=== PATIENT | male | born 1985 | race Caucasian/White ===

== ENCOUNTER 2020-04-17 07:39 | Outpatient (CLI) | payer SELFPAY ==
[2020-04-19 19:50] LABS: Patient Race White; SARS-CoV-2 RNA Undetected (Undetected); SARS-CoV-2 Specimen Source Nasal
== END 2020-04-17 07:59 ==
PROVIDERS: PCP Family Medicine; Visit Provider Family Medicine
DX: Z20.828 Contact with and (suspected) exposure to other viral communicable diseases (principal)
CPT/HCPCS: U0003

== ENCOUNTER 2024-01-26 19:00 | Outpatient (CLI) | payer OTHER, SELFPAY ==
[2024-01-26 09:18] LABS: Calculated LDL 103 mg/dL (<100); Cholesterol 167 mg/dL (<200); HDL Cholesterol 57 mg/dL (40-60); Triglyceride 36 mg/dL (<150)
== END 2024-01-26 19:01 | disposition home or self-care (01) ==
LOC: LBO 19:01
PROVIDERS: PCP Nurse Practitioner Family; Visit Provider Nurse Practitioner Family
DX: Z13.1 Encounter for screening for diabetes mellitus (principal); Z13.220 Encounter for screening for lipoid disorders
CPT/HCPCS: 36415; 80061; 83036

== ENCOUNTER 2024-03-22 22:48 | Emergency (ER) | payer OTHER, SELFPAY ==
[2024-03-22] VITALS (7 sets, daily range): BP systolic 145–161; BP diastolic 85–102; PULSE 101–114; RESP 10–26; TEMP 36.6; O2SAT 96–98
--- NOTE | 2024-03-22 23:00 | RT.EKG_ITS ---
APPROVED REPORT Exam: Resting ECG Reason for Exam: overdose Patient Location: E HR:108 bpm ECG Measurements Heart Rate 108 AXIS DE 126 P 73 QRSd 82 QRS 77 QT 347 T 52 QTc 465 Conclusion Sinus tachycardia...rate> [address] segment or T wave abnormalities to suggest occlusive [place]
--- NOTE | 2024-03-22 23:04 | W.ED.GENAD ---
Discharge Plan Disposition Patient Disposition: Home Condition: Good Discharge Details Clinical Impression: MDMA abuse Primary Care Provider: Andi Carpio ED Provider: Juanita Barber Home Meds and New Rx's Prescriptions: No Action No Known Home Meds Discharge Instructions Instructions: Polysubstance Use Disorder (DC) Additional Instructions: Call your primary care doctor today to schedule an appointment for within the next 72 hours to followup on your visit here. Return to the emergency department for new or worsening symptoms including fever, decreased urine output, chest pain, difficutly breathing, or if you have any other concerns. Stand Alone Forms: Work Release Referrals: Andi Carpio, [employer]PH[employer] [Primary Care Provider] - [facility] General Mode of arrival: ambulatory. Date/Time Provider Initiated Documentation: 03/22/24 22:51. Limitations to Documentation: no limitations. Information obtained by: patient and family. HPI Narrative: 38yo M with hx polysubstance abuse presenting for evaluation after MDMA ingestion. At around 1300 today took about 2g of MDMA. Since then has felt anxious, had difficulty sleeping. Feels left arm and left foot swelling which he says he typically feels when he takes MDMA. Tried some THC concentrate try to help sleep, this was infective. Came in because when he laid down to sleep felt like he was 'drifting off to ' and not falling asleep. Otherwise in his usual state of health with no fevers, chills, rash, nausea, vomtiing, abdominal pain, numbness, tingling, weakness, vision changes, vertigo, shortness of breath, chest pain, or other concerns. Related Data Home Medications ?Medication ?Instructions ?Recorded ?Confirmed Unknown [No Known Home Meds] 10/27/14 03/22/24 Allergies Allergy/AdvReac Type Severity Reaction Status Date / Time amoxicillin AdvReac Intermediate Hives Verified 03/22/24 23:00 cephalexin monohydrate (From AdvReac Intermediate Hives Verified 03/22/24 23:00 Keflex) Penicillins AdvReac Intermediate Hives Verified 03/22/24 23:00 Sulfa (Sulfonamide AdvReac Intermediate Hives Verified 03/22/24 23:00 Antibiotics) General Stated Complaint: Anxiety BHANU: 3 Review of Systems Narrative: see HPI Exam Narrative Exam Narrative: General: Alert, anxious Head: Normocephalic, atraumatic Neck: Trachea midline, ?Neck supple. ENT: ?MMM.? No oropharygeal lesions or exudate. Cardiac: ?RRR, no murmurs appreciated Resp: No respiratory distress. CTAB. Abd: ?Soft, non-distended, nontender Extremities: ?No deformities.? No peripheral edema. Neuro: ? GCS 15.? PERRLA, slight mydriasis. ? EOMI.? Fluent speech, no dysarthria. Motor- 5/5 strength symmetric bilateral upper and lower extremities Sensation- ?Intact to light touch and symmetric multiple dermatomes including upper and lower extremities Reflexes- 2/4 achilles & patellar, no clonus Gait/station: ?Normal stance.? No truncal ataxia. Steady gait with equal normal steps Course Vital Signs Vital signs: Vital Signs Temperature 36.6 C 03/22/24 22:53 Pulse 114 H 03/22/24 22:53 Respiratory Rate 16 03/22/24 22:53 Blood Pressure 161/102 H 03/22/24 22:53 Pulse Oximetry 98 03/22/24 22:53 Temperature 36.6 C 03/22/24 22:53 Pulse 114 H 03/22/24 22:53 Respiratory Rate 16 03/22/24 22:53 Respiratory Effort Normal 03/22/24 22:59 Blood Pressure 161/102 H 03/22/24 22:53 Pulse Oximetry 98 03/22/24 22:53 Oxygen Delivery Method Room Air 03/22/24 22:53 Oxygen Flow Rate 0 03/22/24 22:53 Medical Decision Making 38yo M with hx polysubstance abuse presenting for evaluation after MDMA ingestion. At around 1300 today took about 2g of MDMA. Since then has felt anxious, had difficulty sleeping. Hypertensive and tachycardiac on arrival (? anxiety vs toxidrome), afebrile. Benign physical exam. Slight mydriasis on exam. No diaphoresis, hyperreflexia, or clonus. Will give 1mg PO ativan, evaluate with EKG and labs. EKG sinus tachycardia, appropriate intervals, no ST segment or T wave abnormalities to suggest occlusive [place]. Labs reviewed as below, CBC and CMP reassuring with no actionable abnormalities, CK normal (not rhabdo). Repeat VS improved. Discussed with poison control, based on time of ingestion advised additional one hour observation (2 hours from ED presentation) and if VS acceptable and patient symptomatically improved clear for discharge home. On reassessment pt reports feeling better. BP 147/97, HR in low 90's. No clinical indication of serotonin syndrome or significant sympathomemitic effects. Will discharge home with one 1mg ativan should anxiety return. Discharge instructions and return precautions were reviewed with patient who verbalized understanding. All questions were answered and he is in full agreement with the plan. Lab Data Lab results reviewed: Yes I reviewed the patient's lab results. Labs: Laboratory Tests Range/Units 03/22/24 23:15 WBC (4.4-10.8) 10^3/uL 9.62 RBC (4.36-5.78) 10^6/uL 5.45 Hgb (13.5-17.5) g/dL 16.8 Hct (40.0-50.0) % 47.6 MCV (80-95) fL 87 MCH (27.0-33.0) pg 30.8 MCHC (32.0-36.0) % 35.3 RDW (11.8-14.1) % 11.4 L Plt Count (130-400) 10^3/uL 286 MPV (8.0-11.0) fL 9.7 Immature Gran % % 0.4 Neutrophils % % 63.2 Lymphocytes % % 27.9 Monocytes % % 6.7 Eosinophils % % 1.4 Basophils % % 0.4 Nucleated RBC % (0.0-0.3) % 0.0 Absolute Neutrophils (1.2-6.7) 10^3/uL 6.09 Absolute Lymphocytes (1.2-3.4) 10^3/uL 2.68 Absolute Monocytes (0.1-0.8) 10^3/uL 0.64 Absolute Eosinophils (0.0-0.7) 10^3/uL 0.13 Absolute Basophils (0.0-0.2) 10^3/uL 0.04 Sodium (136-145) mmol/L 134 L Potassium (3.5-5.1) mmol/L 3.7 Chloride (98-107) mmol/L 98 Carbon Dioxide (21.0-32.0) mmol/L 27.4 Anion Gap (3-11) mmol/L 8.6 BUN (7-18) mg/dL 16 Creatinine (0.70-1.30) mg/dL 1.1 Est GFR (CKD-EPI 2020) (mL/min/1.73m2) 89.22 Glucose (74-106) mg/dL 138 H Calcium (8.5-10.1) mg/dL 9.5 Total Bilirubin (0.2-1.0) mg/dL 0.82 AST (15-37) U/L 25 ALT (16-63) U/L 24 Alkaline Phosphatase (46-116) U/L 53 Creatine Kinase (39-308) U/L 117 Total Protein (6.4-8.2) g/dL 7.7 Albumin (3.4-5.0) g/dL 4.3 Quality:SDOH Health Related Social Needs: No Data to Display PFSH All Active Problems (Updated 03/23/24 @ 01:00 by Juanita Barber MD) MDMA abuse (Acute) Medical History (Updated 03/23/24 @ 01:00 by Juanita Barber MD) Opioid abuse Social History (Updated 12/08/23 @ 10:21 by Kenzie Bhagat) Smoking/Tobacco Use Status: Former Tobacco Use tobacco type: cigarettes Quit Date: 06/23/13 Tobacco: How many years used: 15 Quit status: quit date established Second Hand Exposure: No Smoking risk assessment performed?: Yes Alcohol Intake: never Drug use: Occasionally Substance use type: marijuana Details: HX of Opioid Abuse Adopted: No Caregiver/Support person: No Household members: spouse Housing: house Communication Needs: None Education Level: high school 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
[2024-03-22 23:20] LABS: Abs Immature Grans 0.04 10^3/uL (0.0-0.06); Absolute Basophil Count 0.04 10^3/uL (0.0-0.2); Absolute Eosinophil Count 0.13 10^3/uL (0.0-0.7); Absolute Lymphocyte Count 2.68 10^3/uL (1.2-3.4); Absolute Monocyte Count 0.64 10^3/uL (0.1-0.8); Absolute Neutrophil Count 6.09 10^3/uL (1.2-6.7); Basophils % 0.4 %; Eosinophils % 1.4 %; HCT 47.6 % (40.0-50.0); HGB 16.8 g/dL (13.5-17.5); Immature Grans % 0.4 %; Lymphocytes % 27.9 %; MCH 30.8 pg (27.0-33.0); MCHC 35.3 % (32.0-36.0); MCV 87 fL (80-95); MPV 9.7 fL (8.0-11.0); Monocytes % 6.7 %; Neutrophils % 63.2 %; Platelet Count 286 10^3/uL (130-400); RBC 5.45 10^6/uL (4.36-5.78); RDW 11.4 % (11.8-14.1); RDW-SD 36.5 fL; WBC 9.62 10^3/uL (4.4-10.8)
[2024-03-22 23:36] LABS: ALT 24 U/L (16-63); AST 25 U/L (15-37); Albumin 4.3 g/dL (3.4-5.0); Alkaline Phosphatase 53 U/L (46-116); Anion Gap 8.6 mmol/L (3-11); BUN 16 mg/dL (7-18); Bilirubin, Total 0.82 mg/dL (0.2-1.0); CO2 27.4 mmol/L (21.0-32.0); CREATININE 1.1 mg/dL (0.70-1.30); Calcium 9.5 mg/dL (8.5-10.1); Chloride 98 mmol/L (98-107); Creatine Kinase 117 U/L (39-308); Estimated GFR 89.22 (mL/min/1.73m2); Glucose 138 mg/dL (74-106); Potassium 3.7 mmol/L (3.5-5.1); Sodium 134 mmol/L (136-145); Total Protein 7.7 g/dL (6.4-8.2)
[2024-03-22] MEDS: LORazepam 1 MG TAB PO (23:45)
[2024-03-23] VITALS (14 sets, daily range): BP systolic 142–181; BP diastolic 88–106; PULSE 91–118; RESP 9–49; O2SAT 92–98
[2024-03-23] MEDS: LORazepam 1 MG TAB PO (01:23)
== END 2024-03-23 02:26 | disposition home or self-care (01) ==
PROVIDERS: Emergency Provider Student in an Organized Health Care Education/Training Program; PCP Nurse Practitioner Family
DX: F16.10 Hallucinogen abuse, uncomplicated (principal)
CPT/HCPCS: 36415; 80053; 82550; 93005; 99283; 85025; 93010

== ENCOUNTER 2024-07-12 03:24 | Outpatient (CLI) | payer OTHER, SELFPAY ==
[2024-07-31 15:31] LABS: Testosterone, Free 16.1 ng/dL (4.65-18.1); Testosterone, Total 642 ng/dL (240-950)
== END 2024-07-12 03:25 | disposition home or self-care (01) ==
LOC: LOS 03:24
PROVIDERS: PCP Nurse Practitioner Family; Visit Provider Nurse Practitioner Family
DX: N62 Hypertrophy of breast (principal); N63.10 Unspecified lump in the right breast, unspecified quadrant
CPT/HCPCS: 36415; 84402; 84403

== ENCOUNTER 2024-07-18 22:12 | Emergency (ER) | payer OTHER, SELFPAY ==
[2024-07-18] VITALS (28 sets, daily range): BP systolic 151; BP diastolic 89; PULSE 108–122; RESP 17; TEMP 37; O2SAT 93–97
[2024-07-18] MEDS: LORazepam 1 MG TAB PO (22:41)
--- NOTE | 2024-07-18 22:45 | RT.EKG_ITS ---
APPROVED REPORT Exam: Resting ECG Reason for Exam: tachycardia Patient Location: E HR:113 bpm ECG Measurements Heart Rate 113 AXIS TX 124 P 60 QRSd 84 QRS 67 QT 325 T 39 QTc 446 Conclusion Sinus tachycardia...rate> [address] segment or T wave abnoramlities to suggest occluisve [place]
--- NOTE | 2024-07-18 23:13 | W.ED.GENAD ---
Discharge Plan Disposition Patient Disposition: Home Condition: Good Discharge Details Clinical Impression: Polysubstance abuse Primary Care Provider: Andi Carpio ED Provider: Juanita Barber Home Meds and New Rx's Prescriptions: No Action No Known Home Meds Discharge Instructions Instructions: Polysubstance Use Disorder Additional Instructions: Call your primary care doctor today to schedule an appointment for within the next 72 hours to followup on your visit here. Return to the emergency department for new or worsening symptoms including fever, decreased urine output, chest pain, difficultly breathing, or if you have any other concerns. Referrals: Andi Carpio, [employer] [Primary Care Provider] - [facility] General Mode of arrival: ambulatory. Date/Time Provider Initiated Documentation: 07/18/24 22:30. Limitations to Documentation: no limitations. Information obtained by: patient. HPI Narrative: 39yo M with hx polysubstance abuse presenting for evaluation after MDMA ingestion. At around 1430 today took 1g of MDMA. After this he began feeling anxious, afraid he might . Feels that his left foot and his abdomen are swelling (typically feels similar when he takes MDMA). Shortly after the MDM took THC concentrate which did not improve symptoms. Similar episode in Feb of last year for which he was seen here. Otherwise in his usual state of health with no fevers, chills, rash, nausea, vomtiing, abdominal pain, numbness, tingling, weakness, vision changes, vertigo, shortness of breath, chest pain, or other concerns. Related Data Home Medications ?Medication ?Instructions ?Recorded ?Confirmed Unknown [No Known Home Meds] 10/27/14 07/18/24 Allergies Allergy/AdvReac Type Severity Reaction Status Date / Time amoxicillin AdvReac Intermediate Hives Verified 07/18/24 22:23 cephalexin monohydrate (From AdvReac Intermediate Hives Verified 07/18/24 22:23 Keflex) Penicillins AdvReac Intermediate Hives Verified 07/18/24 22:23 Sulfa (Sulfonamide AdvReac Intermediate Hives Verified 07/18/24 22:23 Antibiotics) General Stated Complaint: DrugWithdr/MAT BHANU: 3 Review of Systems Narrative: see HPI Exam Narrative Exam Narrative: General: Alert, anxious Head: Normocephalic, atraumatic Neck: Trachea midline, ?Neck supple. ENT: ?MMM.? No oropharygeal lesions or exudate. Cardiac: ?RRR, no murmurs appreciated Resp: No respiratory distress. CTAB. Abd: ?Soft, non-distended, nontender Extremities: ?No deformities.? No peripheral edema. Neuro: ? GCS 15.? PERRLA, mydriasis. ? EOMI.? Fluent speech, no dysarthria. Motor- 5/5 strength symmetric bilateral upper and lower extremities Sensation- ?Intact to light touch and symmetric multiple dermatomes including upper and lower extremities Reflexes- 2/4 achilles & patellar, no clonus Gait/station: ?Normal stance.? No truncal ataxia. Steady gait with equal normal steps Course Vital Signs Vital signs: Vital Signs Temperature 37.0 C 07/18/24 22:23 Pulse 122 H 07/18/24 22:23 Respiratory Rate 17 07/18/24 22:23 Pulse Oximetry 97 07/18/24 22:23 Temperature 37.0 C 07/18/24 22:23 Temperature Source Temporal Artery Scan 07/18/24 22:23 Pulse 122 H 07/18/24 22:23 Respiratory Rate 17 07/18/24 22:23 Blood Pressure Position Sitting 07/18/24 22:23 Pulse Oximetry 97 07/18/24 22:23 Oxygen Delivery Method Room Air 07/18/24 22:23 Oxygen Flow Rate 0 07/18/24 22:23 Pain Level 5 07/18/24 22:23 Medical Decision Making 39yo M with hx polysubstance abuse presenting for evaluation after MDMA ingestion. At around 1430 today took 1g of MDMA followed by THC concentrate. Currently feels anxious, worried he might , feels like his left foot and abdomen are swelling. Slightly hypertensive on arrival 150's/80's and tachcyardiac to 120s, afebrile. Tachycardia may be secondary to anxiety; must also consider toxidrome. Slight mydriasis on exam; no diaphoresis, agitation, hyperreflexia, or clonus. No foot or abdominal swelling. Overall not concerning for serotonin syndrome or severe sympathomimetic effects or rhabdomyolysis. Would not get labs at this time. EKG sinus tachycardia, appropriate intervals, no ST segment or T wave abnormalities to suggest occlusive [place]. Will treat with PO ativan and monitor for improving symptoms. Discussed with poison control who agrees with plan. Pt subsequently reports feeling much better, requests discharge home. On reassessment he remains well appearing, calm, BP 140's/60's and HR 107. At this point I feel he is safe to go home and rest. Discharged home; discharge instructions and return precautions were reviewed with patient who verbalized understanding. All questions were answered and he is in full agreement with the plan. Quality:SDOH Health Related Social Needs: No Data to Display PFSH All Active Problems (Updated 07/19/24 @ 00:28 by Juanita Barber MD) Polysubstance abuse (Acute) Lump of breast, right (Acute) Medical History (Updated 07/19/24 @ 00:28 by Juanita Barber MD) Opioid abuse Social History (Updated 12/08/23 @ 10:21 by Kenzie Bhagat) Smoking/Tobacco Use Status: Former Tobacco Use tobacco type: cigarettes Quit Date: 06/23/13 Tobacco: How many years used: 15 Quit status: quit date established Second Hand Exposure: No Smoking risk assessment performed?: Yes Alcohol Intake: never Drug use: Occasionally Substance use type: marijuana Details: HX of Opioid Abuse Adopted: No Caregiver/Support person: No Household members: spouse Housing: house Communication Needs: None Education Level: high school 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
[2024-07-19] VITALS (24 sets, daily range): BP systolic 148–149; BP diastolic 69–71; PULSE 107–121; RESP 21; TEMP 37.1; O2SAT 92–97
== END 2024-07-19 00:35 | disposition home or self-care (01) ==
PROVIDERS: Emergency Provider Student in an Organized Health Care Education/Training Program; PCP Nurse Practitioner Family
DX: F19.10 Other psychoactive substance abuse, uncomplicated (principal); R00.0 Tachycardia, unspecified
CPT/HCPCS: 93005; 99283; 93010

== ENCOUNTER 2024-07-20 01:39 | Outpatient (CLI) | payer OTHER, SELFPAY ==
--- NOTE | 2024-07-20 07:30 | DI.US_ITS ---
Exam(s) US BREAST RT COMPLETE MAMMO DIAGNOSTIC BI EXAM: MAMMO DIAGNOSTIC BI and U/S breast RT complete CLINICAL HISTORY: Lump at 3 and 6 positions RT BREAST, pain at 9,RT,N63.10. TECHNIQUE: Craniocaudal and mediolateral oblique Full Field Digital Mammography views with Computer Aided Diagnosis followed by Tomosynthesis and right breast ultrasound. All 4 quadrants of the right breast were evaluated including the right axilla and right retroareolar region. COMPARISON: This is a baseline examination. FINDINGS: Mammography/Tomosynthesis: Masses/Architectural Distortion: None seen. Microcalcifictions: No suspicious pleomorphic-type are seen. Skin Thickening/Nipple Retraction: None. Complete right breast US: Echotexture: Normal appearance of the glandular tissue. Shadowing: No suspicious foci. Cyst: None. Solid lesions: There is a benign-appearing lymph node in the right axilla. Ductal dilation: None. IMPRESSION: 1. No evidence of malignancy is noted. 2. Follow-up as clinically appropriate. 3. The findings were discussed with the patient on the date of the examination. BI-RADS Category 1 - Negative Breast Density - Category A - Almost entirely fatty Breast density Category C or D implies that the patient has dense breast tissue. Dense breast tissue can make it harder to find cancer on a mammogram. Dense breast tissue is also associated with an incr eased risk of breast cancer. This information about the result of the mammogram report was provided to the patient to raise their awareness. Use this report when you speak with the patient about their risks for breast cancer, which includes their family history. At that time, you may recommend additional screening tests (Ultrasoun d or MRI) as these tests may add significant information. A negative radiographic report should not delay biopsy if a dominant or clinically suspicious mass is present. Up to ten percent of cancers are not identified on mammography. A negative report may reinforce clinical impression. Adenosis and dense breasts may obscure an underlying neoplasm. False positive reports average 6 to 10%. Patient will receive a letter notifying them of these results.
== END 2024-07-20 01:59 ==
LOC: DI 01:40
PROVIDERS: PCP Nurse Practitioner Family; Visit Provider Nurse Practitioner Family
DX: N63.13 Unspecified lump in the right breast, lower outer quadrant (principal); Z12.31 Encounter for screening mammogram for malignant neoplasm of breast
CPT/HCPCS: 76642; 77062; 77066; G0279